=== PATIENT | male | born 1960 | race Hispanic/Latino ===

== ENCOUNTER 2022-04-27 10:07 | Emergency (ER) | payer SELFPAY ==
[~2022-04-27] VITALS: Ht 165.1 cm; Wt 99.3 kg
[2022-04-27] MEDS ORDERED: ZESTRIL40 MG PO (10:58)
[2022-04-27] MEDS ORDERED: LEVOTHYROXINE150 MC1 PO (10:58)
[2022-04-27] MEDS ORDERED: NEURONTIN300 MG PO (10:58)
[2022-04-27] MEDS ORDERED: HYDROCHLOROTHIA25 MG PO (10:59)
[2022-04-27] MEDS ORDERED: ZOCOR10 MG PO (10:59)
[2022-04-27] MEDS ORDERED: FLUOXETINE HCL40 MG PO (11:00)
[2022-04-27] MEDS ORDERED: ULTRAM50 MG PO (14:31)
== END 2022-04-27 14:38 | disposition home or self-care (01) ==
LOC: ED 10:07
DX: R10.9 Unspecified abdominal pain (principal); E87.1 Hypo-osmolality and hyponatremia; Z88.8 Allergy status to other drugs, medicaments and biological substances
CPT/HCPCS: 36415; 74177; 80053; 81001; 83690; 85025; 96361; 96375; 99284-25; J2270; J2405; J7030; Q9967

== ENCOUNTER 2022-06-21 17:36 | Emergency (ER) | payer OTHER ==
[~2022-06-21] VITALS: Ht 165.1 cm; Wt 99.3 kg
[~2022-06-21 17:36] MED LIST: FLUOXETINE HCL40 MG PO; HYDROCHLOROTHIA25 MG PO; LEVOTHYROXINE150 MC1 PO; NEURONTIN300 MG PO; ULTRAM50 MG PO; ZESTRIL40 MG PO; ZOCOR10 MG PO
--- OUTSIDE RECORDS SUMMARY | 2022-06-21 17:38 | XMS ---
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 E.Gina. VISIT COUNT (12 MO.) [address] [place] [address] TOTAL 15 NOTE: Visits indicate total known visits. ED/UCC VISIT TRACKING (12 MO.) 06/21/2022 17:37 [facility] TYPE: Emergency COMPLAINT: - ABDOMINAL PAIN 06/13/2022 05:48 [facility] [place] TYPE: Emergency DIAGNOSES: - Solitary pulmonary nodule - Right upper quadrant pain - RT flank pain - Hypo-osmolality and hyponatremia - Flank Pain [facility] DIAGNOSES: - cath issues - MCC (current) use of antithrombotics/antiplatelets - Catheter Problem (Leaking) - Gross hematuria - Other specified disorders of bladder - Hematuria [facility]22 15[facility] [place] [facility] DIAGNOSES: - Hematuria, unspecified - Urinary Pain - penis pain? 05/22/2022 10:47 [facility] [place] [facility] DIAGNOSES: - Alcoholic cirrhosis of liver without ascites - Poss Stroke - Other obesity due to excess calories - Extremity Weakness - Essential (primary) hypertension - Body mass index [BMI] 33.0-33.9, adult - Transient cerebral ischemic attack, unspecified 05[facility]12[facility]2022 21[facility] DIAGNOSES: - Constipation, unspecified - abd pain - Abdominal Pain - Unspecified abdominal pain 04/27/2022 10:09 [facility] [place] TYPE: Emergency COMPLAINT: - R SIDE UPPER ABD PAIN DIAGNOSES: - Unspecified abdominal pain - Allergy status to other drugs, medicaments and biological substances - Hypo-osmolality and hyponatremia 04/13/2022 19:04 [facility] TYPE: Emergency DIAGNOSES: - Pain in right lower leg - Leg Pain (Non-traumatic) - ultra sound 04/01/2022 04:54 [facility] TYPE: Emergency DIAGNOSES: - Left lower quadrant pain - Abdominal Pain - abd pain 02/23/2022 16:56 [facility] [place] TYPE: Emergency DIAGNOSES: - Flank Pain - Unspecified abdominal pain - tailbone pain 01/24/2022 20:25 [facility] [place] TYPE: Emergency DIAGNOSES: - head pain - Headache (Adult - New Onset Or New Symptoms) 01/13/2022 18:20 [facility] [place] TYPE: Emergency DIAGNOSES: - Pain in right leg - Unspecified abdominal pain - Groin Pain - Abdominal Pain 12/08/2021 15:09 [facility] TYPE: Emergency DIAGNOSES: - Leg Pain - cramps in left leg - Cramp and spasm 09/21/2021 15:22 [facility] [place] TYPE: Emergency DIAGNOSES: - Hypo-osmolality and hyponatremia - Diarrhea, unspecified - Hypokalemia - poss torn muscle - Abdominal Pain 08/20/2021 15:40 [facility] [place] TYPE: Emergency DIAGNOSES: - Abdominal Pain - Constipation, unspecified - abd pain INPATIENT VISIT TRACKING (12 MO.) 06/02/2022 13:14 [facility] TYPE: [facility] DIAGNOSES: - Other specified disorders of bladder - Gross hematuria - Benign prostatic hyperplasia without lower urinary tract symptoms - MCC (current) use of antithrombotics/antiplatelets 05/22/2022 10:47 [facility] TYPE: [facility] DIAGNOSES: - Hypokalemia - Transient cerebral ischemic attack, unspecified - Hypothyroidism, unspecified - Hyperlipidemia, unspecified - Alcoholic cirrhosis of liver without ascites - Other obesity due to excess calories - Body mass index [BMI] 33.0-33.9, adult - Depression, unspecified - Essential (primary) hypertension - Mixed hyperlipidemia - Anxiety disorder, unspecified [email or web address]
[2022-06-21] MEDS ORDERED: DICLOFENAC SOD100 G1 TOP (20:39)
[2022-06-21] MEDS ORDERED: KETOROLAC TROME10 MG PO (20:39)
[2022-06-21] MEDS ORDERED: METOCLOPRAMIDE10 MG PO (20:39)
--- NOTE | 2022-06-21 21:17 | EKG ---
[facility] [address] [place] [address] Signed Normal sinus rhythm Normal ECG No previous ECGs available Confirmed by Javy Trinh MD () on 06/21/2022 9:16:45 PM Electronically Signed By: JAVY TRINH MD 06/21/222116 [facility] DATE OF : 58 PHYSICIAN: JAVY TRINH MD REPORT #: [id number] REPORT IS CONFIDENTIAL AND NOT TO BE RELEASED WITHOUT AUTHORIZATION
[2022-06-21] MEDS ORDERED: BACTRIM DS TAB1 EACH PO (22:38)
== END 2022-06-21 22:50 | disposition home or self-care (01) ==
LOC: ED 17:36
DX: N39.0 Urinary tract infection, site not specified (principal); I10 Essential (primary) hypertension; E78.5 Hyperlipidemia, unspecified; E07.9 Disorder of thyroid, unspecified; Z88.8 Allergy status to other drugs, medicaments and biological substances; Z79.899 Other long term (current) drug therapy
CPT/HCPCS: 36415; 74177; 80053; 81001; 83690; 84484; 85025; 87088; 93005; 93010; 96375; 99284-25; A9270; J2270; J2405; Q9967